=== PATIENT | male | born 1975 | race Caucasian/White ===

== ENCOUNTER 2017-06-30 02:25 | Inpatient (IN) | payer MEDICAID ==
[~2017-06-30] VITALS: Ht 182.9 cm; Wt 123.8 kg
[2017-06-30 02:35] VITALS: BP 144/97
--- NOTE | 2017-06-30 02:41 | NUR ---
TO LOBBY AMBULATORY,IN STABLE CONDITION, MEDICATED PER PROTOCOL, PATIENT TOLERATED WELL, A/W FOR BED, ERMD NOTED.
[2017-06-30] MEDS ORDERED: ACETAMINOPHEN EXTRA STRENGTH 500 MG TAB ONE ×2 (02:52→08:18)
--- NOTE | 2017-06-30 04:25 | NUR ---
Patient to bed 12. RN evaluating patient.
--- NOTE | 2017-06-30 04:35 | NUR ---
41Y M BIB SELF C/O CHEST CONGESTION X 5 DAYS. PT DENIES USE TO MAR[place] OR TOBACCO. PT DENIES ANY ALLERGIES. PT AAOX4. PT SA02 87-90 ON RA, PT PLACED ON NASAL CANULA AT 2L. PT NOW O2SAT IS 96%. PT DENIES ANY N/V/D AT THE MOMENT.
[2017-06-30] MEDS ORDERED: ALBUTEROL 0.083% 2.5 MG/3 ML NEBU INH ONE (05:15)
[2017-06-30] MEDS ORDERED: NACL 0.9% 1,000 ML IV ONE (05:15)
[2017-06-30] MEDS ORDERED: AMPICILLIN/SULBACTAM 3 GM in NACL 0.9% 100 ML IV ONE (05:15)
--- NOTE | 2017-06-30 05:20 | NUR ---
PT PROVIDED URINE CUP, PT STATES HE JUST WENT TO THE BATHROOM, BUT WILL TRY AGAIN IN A LITTLE BIT
[2017-06-30] MEDS ORDERED: AMPICILLIN/SULBACTAM 3 GM VIAL ONE (05:28)
[2017-06-30 06:00] LABS: MEAN CORPUSCULAR VOLUME 86 fL (80-94)
[2017-06-30 06:08] LABS: HEMATOCRIT 45.7 % (36-52); HEMOGLOBIN 15.8 g/dL (12.0-18.0); MEAN CORPUSCULAR HEMOGLOBIN 30 pg (27-31); MEAN CORPUSCULAR HGB CONC 35 g/dL (33-37); PLATELET COUNT (AUTO) 215 K/uL (140-450); RED CELL DISTRIBUTION WIDTH 12.4 % (11.6-13.7); WHITE BLOOD COUNT (AUTO) 16.7 K/uL (4.8-10.8)
[2017-06-30 06:39] LABS: ALBUMIN 3.7 g/dL (3.4-5.0); ANION GAP 16.8 (8-16); CARBON DIOXIDE 23.4 mmol/L (21-32); CREATININE 1.5 mg/dL (0.7-1.3); POTASSIUM 4.2 mmol/L (3.5-5.1); TOTAL BILIRUBIN 0.8 mg/dL (0.0-1.0)
[2017-06-30 06:59] LABS: LYMPHOCYTES % (MANUAL) 6 % (20-46); MONOCYTES % (MANUAL) 12 % (5-12)
[2017-06-30] MEDS ORDERED: INSULIN HUMAN REGULAR 100 UNITS/ML 10 ML VIAL IVP ONE (07:10)
--- NOTE | 2017-06-30 07:18 | NUR ---
Pt report given to SELENE MAYO . Transfer of care at this time. Addendum: 06/30/17 at 0801 by [facility] GOT REPORT FROM MARIA ESTHER EASLEY.
[2017-06-30] MEDS ORDERED: LEVOFLOXACIN 750 MG/D5W PREMIX 150 ML IV ONE (07:40)
[2017-06-30 08:04] LABS: APPEARANCE,URINE CLEAR (CLEAR); BILIRUBIN,URINE NEGATIVE (NEGATIVE); COLOR,URINE YELLOW (YELLOW); LEUKOCYTE ESTERASE ,URINE NEGATIVE (NEGATIVE); NITRITE, URINE NEGATIVE (NEGATIVE); UGLUCOSE 3+ (NEGATIVE)
[2017-06-30 08:05] LABS: BLOOD, URINE TRACE (NEGATIVE)
[2017-06-30] MEDS ORDERED: ACETAMINOPHEN EXTRA STRENGTH 500 MG TAB PO ONE (08:05)
[2017-06-30 08:06] LABS: RBC,URINE 0-5 (RARE) /HPF (0-5); WBC,URINE 0-5 (RARE) /HPF (0-5)
--- NOTE | 2017-06-30 08:14 | NUR ---
PT AAO X 4,C/O BODY SORE 02/10, T 102.8, NABEEL HDEZ; TYLENOL 1000 MG PO. R 26/MIN , ON O2 2 LPM CANULA. BP 123/75.
--- NOTE | 2017-06-30 08:46 | NUR ---
REPEAT BS-312MG/DL, DR LUI INFORMED.
--- NOTE | 2017-06-30 08:48 | NUR ---
Isatu lind in [facility] - 06/30/17 at 0852 by MED1 Patient being reevaluated by physician at bedside.
--- NOTE | 2017-06-30 09:20 | NUR ---
PT STS "FEEL SO MUCH BETTER. T99.9,R22/MINS,O2 SAT 94 %, PT ON O2 2LPM NC.
[2017-06-30] MEDS ORDERED: INSULIN LISPRO SLIDING SCALE 100 UNITS/ML VIAL SUBQ PRN (09:25)
[2017-06-30] MEDS ORDERED: DEXTROSE 50% 50 ML SYR IVP PRN ×2 (09:25→20:50)
[2017-06-30] MEDS: NACL 0.9% 1,000 ML IV SCH ×3 (09:26→23:50)
--- NOTE | 2017-06-30 10:09 | NUR ---
PATIENT HAS BEEN SCREENED AND CATEGORIZED HIGH NUTRITION RISK. PATIENT WILL BE SEEN WITHIN 1-2 DAYS OF ADMISSION. 06/30/17-07/01/[address]
[2017-06-30] MEDS ORDERED: DOCUSATE SODIUM 100 MG GELCAP PO PRN (10:25)
[2017-06-30] MEDS ORDERED: HYDROcodone/APAP 7.5/325 MG 1 TAB PO PRN (10:25)
[2017-06-30] MEDS ORDERED: ONDANSETRON 4 MG/2 ML VIAL IM/IVP PRN (10:25)
[2017-06-30] MEDS ORDERED: MORPHINE SULFATE 2 MG/ML SYR IVP PRN (10:25)
--- NOTE | 2017-06-30 10:41 | NUR ---
LAB AT BEDSIDE
--- NOTE | 2017-06-30 11:03 | NUR ---
ABG DONE WITH NO INCIDENT. RESULTS UPLOADED TO [facility] AND RESULTS GIVEN TO RESIDENT. NO NEW ORDERS OF NOW. WILL CONTINUE TO MONITOR.
[2017-06-30 11:13] LABS: PROTHROMBIN TIME 11.8 secs (10.8-13.4)
[2017-06-30 11:24] LABS: CHOL/HDL RATIO 2.3 (1-4.5); FREE T4 (FREE THYROXINE) 1.12 ng/dL (0.76-1.46); THYROID STIMULATING HORMONE 0.91 uIU/mL (0.34-3.74)
[2017-06-30] MEDS: BLOOD GLUCOSE MONITORING 1 DEV DEV FS SCH ×5 (11:30→23:58)
--- NOTE | 2017-06-30 11:30 | NUR ---
PATIENT ADMITTED FROM ER WITH CC SOB X 4 DAYS. DX: ASP. PNA, SEPSIS. ALERT AND ORIENTED. AMBULATES. ON O2 2L NC. DIMINISHED BREATH SOUNDS. PATIENT HAS IV TO RAC #18, PATENT AND INTACT. DENIES MEDICAL HISTORY. PT MEDICATED FOR INCREASED BS IN ER. ORIENTED PATIENT TO HOSPITAL ENVIRONMENT. CALL LIGHT WITHIN REACH.
--- NOTE | 2017-06-30 11:32 | NUR ---
Patient will be admitted to care of DR GUTIERREZ. Admited to TELE. Will go to [id number]. Belongings list completed. Report to MARIA ESTHER ARREGUIN.
[2017-06-30 12:00] VITALS: BP 120/74
--- NOTE | 2017-06-30 12:20 | NUR ---
PATIENT HAVING INCREASED RESPIRATIONS AFTER AMBULATION. PATIENT UNABLE TO CATCH BREATH O2 SAT 91% ON 2L NC. DR. YBARRA MADE AWARE, NEW ORDERS RECEIVED PRN BIPAP. NEW LABS ORDERED.
[2017-06-30] MEDS: CLINDAMYCIN 600 MG in DEXTROSE 5% 50 ML IV SCH ×3 (12:37→23:56)
[2017-06-30] MEDS: ALBUTEROL SULFATE/IPRATROPIU 3 ML SOL IH SCH ×2 (12:52→18:45)
[2017-06-30] MEDS ORDERED: methylPREDNISolone SS 125 MG in WATER STERILE 2 ML IV ONE (12:55)
[2017-06-30 13:09] VITALS: BP 120/74
--- NOTE | 2017-06-30 13:13 | NUR ---
PT STARTED ON BIPAP. SETTINGS 12/6,10,100%. WILL TITRATE FIO2 TOLERATED. WILL CONTINUE TO MONITOR.
[2017-06-30] MEDS ORDERED: methylPREDNISolone SS 125 MG/2 ML VIAL IVP SCH ×2 (13:30→21:00)
--- NOTE | 2017-06-30 14:20 | NUR ---
PATIENT TOLERATED PO LUNCH. RESTING IN BED ON BIPAP. NO ACUTE DISTRESS NOTED.
--- NOTE | 2017-06-30 14:56 | NUR ---
SECOND ABG DONE WITH NO INCIDENT. DECREASED FIO2 T0 40%. RESULTS GIVEN TO RESIDENT. WILL CONTINUE TO MONITOR.
--- NOTE | 2017-06-30 15:13 | NUR ---
PT OFF BIPAP. PER PT HE FEELS BETTER. DR PEARSON RESIDENT AWARE. WILL CONTINUE TO MONITOR.
[2017-06-30 16:00] VITALS: BP 135/79
--- NOTE | 2017-06-30 16:20 | NUR ---
PATIENT SEEN BY DR. NESS AT BEDSIDE. NEW TRANSFER ORDERS RECEIVED. NEW LABS ORDERED. CONT. BIPAP ORDERED. PATIENT ALERT AND ORIENTED IN BED. CALL LIGHT WITHIN REACH.
[2017-06-30 17:13] LABS: CARBON DIOXIDE 21.8 mmol/L (21-32); CREATININE 1.3 mg/dL (0.7-1.3); POTASSIUM 3.8 mmol/L (3.5-5.1)
[2017-06-30 17:34] LABS: MAGNESIUM 1.3 mg/dL (1.8-2.4); PHOSPHORUS 2.3 mg/dL (2.5-4.9)
--- NOTE | 2017-06-30 18:02 | NUR ---
PT BACK ON BIPAP PER DR NESS REQUEST.
--- NOTE | 2017-06-30 19:00 | NUR ---
RECEIVED REPORT FROM MARIA ESTHER ALFARO. PT IS AWAKE, ALERT & ORIENTED X4, VERBALLY RESPONSIVE. PT IS ON 3L/M OXYGEN VIA NS, O2 SAT 95%. BILATERAL LUNG SOUNDS CLEAR. SINUS TACHY ON CHLORINATION OPERATOR. PERIPHERAL IV LINE ON RIGHT ANTECUBITAL 18G WITH NS 200ML/HR. POSITIVE BOWEL SOUND FROM ALL 4 QUADS. SKIN IS INTACT. ALL SAFETY PRECAUTION IN PLACE CALL LIGHT WITHIN REACH. CONTINUE TO MONITOR.
--- NOTE | 2017-06-30 19:10 | NUR ---
PATIENT TRANSFERRED TO ICU BED 5. PATIENT IS ALERT AND ORIENTED. ON O2 5L NC PER RT.
--- NOTE | 2017-06-30 19:23 | NUR ---
GIVEN REPORT TO MARIA ESTHER WHEELER.
--- NOTE | 2017-06-30 19:40 | NUR ---
RECEIVED REPORT FROM AM SHIFT. PER AM SHIFT PT JUST TRANSFERRED TO ICU ABOUT 1909 FROM TELE. PT IS ALERT ORIENTED X4. PT DENIES ANY PAIN AT THIS TIME. PT ON O2 VIA N/C AT 3 LPM TOLERATING WELL.HOB UP 30-45 DEGREE. TACHYCARDIA ON MONITOR. IV TO RIGHT AC NO 18 INTACT WELL WITH FLUID IV NS AT 200 CC/HR. ABD SOFT NON DISTENDED. POSITIVE BOWEL SOUNDS TO ALL QUADRANT. NO EDEMA NOTED. SKIN IS INTACT. GENTLE CARE GIVEN. CALL LIGHT PLACE IN REACH.
[2017-06-30 20:00] VITALS: BP 146/95
[2017-06-30] MEDS: ACETAMINOPHEN 325 MG TAB PO PRN (20:15)
--- NOTE | 2017-06-30 20:20 | NUR ---
PT HAS FEVER T 100.8. COOLING MEASURE GIVEN. TYLENOL GIVEN ORDER FOR FEVER. PT ALSO C/O PAIN IN CHEST AREA AND GENERAL BODY PAIN LEVEL 02/10. REPOSITION PT FOR COMFORT.HOB UP 45 DEGREE. PRN MORPHINE GIVEN SLOW IVP HAMMAD PAIN.CONTINUE TO MONITOR CLOSELY.
--- NOTE | 2017-06-30 20:45 | NUR ---
GIRL FRIEND COME TO SEE PT. PT LOOK HAPPY.
[2017-06-30] MEDS ORDERED: INSULIN HUMAN REGULAR 100 UNITS in NACL 0.9% 100 ML IV SCH (20:50)
--- NOTE | 2017-06-30 21:00 | NUR ---
BLOOD SUGAR IS 272. DR FRANKLIN MADE AWARE WITH NEW RESULT AND REPORTING TO NO MORE INSULIN ORDER AT THIS TIME. PER MD WILL PUT INSULIN DRIPS ORDER. CONT TO FOLLOW UP. PT NO MORE FEVER T 98.8.
--- NOTE | 2017-06-30 21:50 | NUR ---
BLOOD SUGAR 290 START WITH INSULIN DRIPS ORDER. CONTINUE TO MONITOR CLOSELY
[2017-06-30 22:00] VITALS: BP 119/73
--- NOTE | 2017-06-30 22:00 | NUR ---
T 97.1.
--- NOTE | 2017-06-30 22:50 | NUR ---
BOOD SUGAR DOWN TO 258.INSULIN DRIPS GIVEN ORDER
--- NOTE | 2017-06-30 23:10 | NUR ---
PT URINATE 800 CC LINDA CLEAR COLOR.
[2017-07-01] VITALS (20 sets, daily range): BP systolic 86–153; BP diastolic 50–93
--- NOTE | 2017-07-01 | NUR ---
IV ABT GIVEN TOLERATING WELL
[2017-07-01] MEDS: NACL 0.9% 1,000 ML IV SCH ×4 (00:20→21:02)
--- NOTE | 2017-07-01 00:20 | NUR ---
IV NS STILL RUNNING AT 200 CC/HR BAG NOT CHANGE AT THIS TIME D/T STILL ABOUT 700 CC IN THE BAG.
[2017-07-01 00:37] LABS: ANION GAP 14.2 (8-16); CARBON DIOXIDE 23.9 mmol/L (21-32); CREATININE 1.1 mg/dL (0.7-1.3); POTASSIUM 4.1 mmol/L (3.5-5.1)
[2017-07-01] MEDS: BLOOD GLUCOSE MONITORING 1 DEV DEV FS SCH ×12 (00:58→23:49)
--- NOTE | 2017-07-01 02:00 | NUR ---
PT SLEEPING WELL,NO S/S RESP DISTRESS,NO SOB.
--- NOTE | 2017-07-01 03:00 | NUR ---
PT URINATE 1000 CC. YELLOW CLEAR COLOR. PT CONTINENT USING URINAL.
[2017-07-01 04:18] LABS: HEMATOCRIT 41.5 % (36-52); HEMOGLOBIN 13.9 g/dL (12.0-18.0); MEAN CORPUSCULAR HEMOGLOBIN 29 pg (27-31); MEAN CORPUSCULAR HGB CONC 33 g/dL (33-37); MEAN CORPUSCULAR VOLUME 87 fL (80-94); PLATELET COUNT (AUTO) 207 K/uL (140-450); RED BLOOD CELL COUNT(AUTO) 4.76 MIL/uL (4.20-6.10); RED CELL DISTRIBUTION WIDTH 12.4 % (11.6-13.7); WHITE BLOOD COUNT (AUTO) 12.3 K/uL (4.8-10.8)
[2017-07-01 04:29] LABS: ANION GAP 11.7 (8-16); CARBON DIOXIDE 26.2 mmol/L (21-32); POTASSIUM 3.9 mmol/L (3.5-5.1)
[2017-07-01 04:32] LABS: MAGNESIUM 1.8 mg/dL (1.8-2.4); PHOSPHORUS 2.1 mg/dL (2.5-4.9)
--- NOTE | 2017-07-01 05:00 | NUR ---
PT ABLE TO CLEANSE HIM SELF,STANDBY ASSISTANCE ONLY. DENIES ANY PAIN AT THIS TIME. KEPT PT CLEAN AND DRY. CALL LIGHT IN REACH.
[2017-07-01] MEDS: CLINDAMYCIN 600 MG in DEXTROSE 5% 50 ML IV SCH ×4 (05:25→23:49)
--- NOTE | 2017-07-01 05:30 | NUR ---
AM MEDS GIVEN ONDINA WELL
--- NOTE | 2017-07-01 06:00 | NUR ---
PT URINATE 300 CC YELLOW CLEAR COLOR. CONTINEN USING URINAL.
[2017-07-01 06:16] LABS: T4 (THYROXINE) 7.7 ug/dL (4.5-12.0)
[2017-07-01 06:22] LABS: LYMPHOCYTES % (MANUAL) 15 % (20-46); MONOCYTES % (MANUAL) 9 % (5-12)
[2017-07-01] MEDS: ALBUTEROL SULFATE/IPRATROPIU 3 ML SOL IH SCH ×3 (06:44→18:49)
[2017-07-01] MEDS ORDERED: INSULIN DETEMIR 100 UNITS/ML 10 ML VIAL SUBQ SCH ×2 (07:00→09:00)
--- NOTE | 2017-07-01 07:04 | NUR ---
DR. FRANKLIN MADE AWARE BLOOD SUGAR IS 198, PER MD WILL PUT NEW IVF ORDER AND LEVEMIR ORDER. WILL ENDORESED TO NEXT SHIFT TO FOLLOW UP.
--- NOTE | 2017-07-01 07:13 | NUR ---
REPORT GIVEN TO BONNIE MAYO AM SHIFT. MADE AWARE RT JUST PUT BIPAP ON AFTER THE BREATHING TX.
--- NOTE | 2017-07-01 07:21 | NUR ---
RECIVED PT ON 3LPM NC SPO2 .92 PT AWAKE ALERT BREATH SOUNDS WHEESES BILAT WITH SOME LABORED BREATHING BIPAP PLUGGED INTO RED OUTLET AMBU BAG AT BEDSIDE
--- NOTE | 2017-07-01 07:27 | NUR ---
PT OFF BIPAP FOR BREAKFEAST PLACED ON 2LPM NC
[2017-07-01] MEDS: LEVOFLOXACIN 750 MG/D5W PREMIX 150 ML IV SCH (08:09)
[2017-07-01] MEDS: LACTOBACILLUS RHAMNOSUS GG 1 EACH CAP PO SCH (08:09)
[2017-07-01] MEDS: ACETAMINOPHEN 325 MG TAB PO PRN ×2 (08:10→20:06)
[2017-07-01 08:27] LABS: ANION GAP 14.1 (8-16); CARBON DIOXIDE 22.8 mmol/L (21-32); POTASSIUM 3.9 mmol/L (3.5-5.1)
--- NOTE | 2017-07-01 09:00 | NUR ---
PT PLACED BACK ON BIPAP WITH SETTINGS CHARTED
--- NOTE | 2017-07-01 11:30 | NUR ---
RT PLACED PATIENT BACK ON 02 PER NASAL CANNULA AT 3 LPM
[2017-07-01 12:50] LABS: ANION GAP 10.8 (8-16); CREATININE 0.9 mg/dL (0.7-1.3); POTASSIUM 3.8 mmol/L (3.5-5.1)
[2017-07-01] MEDS ORDERED: PROBIOTIC SCREEN 1 EA MISC MC PRN (13:05)
--- NOTE | 2017-07-01 15:20 | NUR ---
PT REMOVED FROM BIPAP TO VISIT WITH FAMILY PT SPO2 .98 ON 2LPM NC
[2017-07-01] MEDS: ALBUTEROL SULFATE/IPRATROPIU 3 ML SOL IH PRN ×2 (15:54→23:14)
--- NOTE | 2017-07-01 16:14 | NUR ---
PLEASE REFER TO NUTRITION ASSESSMENT UNDER CARE ACTIVITY FOR ESTIMATED NUTRITIONAL NEEDS. 1.RD TO PROVIDE MEDICAL NUTRITION THERAPY REGARDING WT LOSS AND GLUCOSE CONTROL (UNABLE TO COMPLETE TODAY, WILL DEFER TO FOLLOW/UP VISIT) 2.CONTINUE CURRENT DIET (CCHO 60 GM), PT TO INCREASE PO INTAKE TO MEET >90% ESTIMATED ENERGY AND PROTEIN NEEDS. 3.RD TO FOLLOW-UP 2-3 DAYS, HIGH RISK JOSELINE QUINONEZ, RD
[2017-07-01] MEDS: INSULIN LISPRO SLIDING SCALE 100 UNITS/ML VIAL SUBQ PRN ×3 (16:18→23:50)
--- NOTE | 2017-07-01 16:54 | NUR ---
PT PLACED BACK ON BIPAP WITH SETTINGS CHARTED
[2017-07-01] MEDS ORDERED: MAG SULF 2000 MG/WATER PREMIX 50 ML IV SCH (19:00)
[2017-07-01] MEDS ORDERED: SODIUM PHOS / POTASSIUM PHOS 1 PKT PDR PO SCH (19:00)
--- NOTE | 2017-07-01 19:20 | NUR ---
REPORT GIVEN TO NOC RN FOR CONTINUITY OF CARE. PATIENT IN STABLE CONDITION.
--- NOTE | 2017-07-01 19:30 | NUR ---
RECEIVED PT FROM AM SHIFT. PT IS ALERT ORIENTED. ABLE TO MAKE NEEDS KNOWN. PT ON BIPAP WITH FIO2 40 % TOLERATING WELL. LUNGS SOUND CLEAR TO EPISODE OF WHEEZING. NO C/O PAIN AT THIS TIME. HOB UP 30-45 DEGREE. CONT ON IV NS AT 80 CC/HR TO LEFT HAND. IV SITE PERIPHERAL LEFT HAND NO 22 AND RIGHT AC NO 18. BOTH INTACT WELL. NO S/S OF INFECTION NOTED.SKIN IS INTACT. ABD SOFT NON DISTENDED. PT IS CONTINENT BOWEL AND BLADDER. GENTLE CARE GIVEN KEPT CLEAN AND DRY. CALL LIGHT IN REACH.
--- NOTE | 2017-07-01 20:10 | NUR ---
PT HAS FEVER 101.9. COOLING MEASURE GIVEN. INCREASE FLUIDS INTAKE. ICE PACKS TO BOTH ARMPIT. TYLENOL GIVE ORDER PO FOR FEVER. CONTINUE TO MONITOR CLOSELY.
--- NOTE | 2017-07-01 21:00 | NUR ---
PT NO MORE FEVER T.98.8. BLOOD SUGAR WAS 267. INSULIN GIVEN PERSLIDING SCALE AND TOLERATING WELL.
--- NOTE | 2017-07-01 21:02 | NUR ---
IV NS STILL RUNNING AT 80 CC/HR .STILL REMAINING 700 CC ON THE IV BAG.NO NEW BAG NEED TO BE CHANGE YET.
--- NOTE | 2017-07-01 21:10 | NUR ---
FIO2 TITRATED TO 35%, TOLERATING WELL, O2 SAT 95%, NO RESP DISTRESS OR SOB NOTED AT THIS TIME, KEKE MAYO AWARE.
--- NOTE | 2017-07-01 21:15 | NUR ---
FAMILY COME TO VISIT PT LOOK HAPPY.
--- NOTE | 2017-07-01 21:15 | NUR ---
FIO2 CHANGE TO 35%
--- NOTE | 2017-07-01 21:30 | NUR ---
PT WANT TO TAKE BREAK FROM BIPAP PUT ON O2 AT 5LPM ONDINA WELL.
--- NOTE | 2017-07-01 21:31 | NUR ---
PT REQUESTED TO TAKE A BREAK FROM BIPAP, PLACED ON 5LPM NC, TOLERATING WELL O2 SAT 95%, NO RESP DISTRESS OR SOB AT THIS TIME, KEKE MAYO AWARE.
--- NOTE | 2017-07-01 22:30 | NUR ---
PT C/O PAIN ON CHEST AREA 01/10. REPOSITION FOR COMFORT. NORCO GIVEN ORDER. CALL LIGHT IN REACH.
--- NOTE | 2017-07-01 23:18 | NUR ---
PT SLEEPING AT THIS TIME NO S/S OF PAIN. PT BACK TO BIPAP AT 35 % FIO2
--- NOTE | 2017-07-01 23:20 | NUR ---
PT PLACED BACK ON BIPAP TO SLEEP, GIVEN PRN HHN TX, TOLERATED WELL, O2 SAT 98%, KEKE RN AWARE, WILL CONT TO MONITOR.
[2017-07-02] VITALS (16 sets, daily range): BP systolic 110–173; BP diastolic 57–95
--- NOTE | 2017-07-02 00:10 | NUR ---
PT IS CONTINENT USING URINAL AND 1000 CC YELLOW CLEAR URINE NOTED. ABLE TO CLEAN HER SELF
--- NOTE | 2017-07-02 02:00 | NUR ---
PT SLEEPING USING BIPAP TOLERATING WELL,NO S/S OF RESP.DISTRESS.NO SOB.
[2017-07-02] MEDS: BLOOD GLUCOSE MONITORING 1 DEV DEV FS SCH ×5 (03:59→20:06)
[2017-07-02] MEDS: INSULIN LISPRO SLIDING SCALE 100 UNITS/ML VIAL SUBQ PRN ×5 (04:01→20:16)
[2017-07-02] MEDS: ALBUTEROL SULFATE/IPRATROPIU 3 ML SOL IH PRN ×2 (04:10→15:31)
--- NOTE | 2017-07-02 04:10 | NUR ---
BLOOD SUGAR IS 192 INSULIN COVERAGE 2 UNIT GIVEN SQ ORDER. PT URINATE X1 WITH 400 CC. LINDA COLOR ABLE TO CLEAN HIM SELF
[2017-07-02] MEDS: ACETAMINOPHEN 325 MG TAB PO PRN ×3 (05:46→20:14)
[2017-07-02] MEDS: CLINDAMYCIN 600 MG in DEXTROSE 5% 50 ML IV SCH ×3 (05:46→17:10)
--- NOTE | 2017-07-02 05:50 | NUR ---
AM CARE GIVEN, PT HAS X1 LARGE BM . ABLE TO STAND UP AND SIT ON THE COMMODE. ABLE TO CLEAN HIM SELF. KEPT PT CLEAN AND DRY. CALL LIGHT IN REACH. PT HAS T 100.2 COOLING MEASURE GIVEN. TYLENOL GIVEN ORDER. CONT TO MONITOR.
[2017-07-02 06:25] LABS: BASOPHILS # (AUTO) 0.2 K/uL (0.00-0.22); BASOPHILS % (AUTO) 1.3 % (0.0-2.0); EOSINOPHILS % (AUTO) 0.1 % (0.0-4.0); HEMATOCRIT 41.2 % (36-52); HEMOGLOBIN 13.7 g/dL (12.0-18.0); LYMPHOCYTES % (AUTO) 7.9 % (20.5-51.1); MEAN CORPUSCULAR HEMOGLOBIN 29 pg (27-31); MEAN CORPUSCULAR HGB CONC 33 g/dL (33-37); MEAN CORPUSCULAR VOLUME 87 fL (80-94); MONOCYTES # (AUTO) 1.3 K/uL (0.8-1.0); MONOCYTES % (AUTO) 9.5 % (1.7-9.3); NEUTROPHILS # (AUTO) 10.8 K/uL (1.8-7.7); NEUTROPHILS % (AUTO) 81.2 % (42.2-75.2); PLATELET COUNT (AUTO) 273 K/uL (140-450); RED BLOOD CELL COUNT(AUTO) 4.75 MIL/uL (4.20-6.10); RED CELL DISTRIBUTION WIDTH 12.3 % (11.6-13.7)
[2017-07-02 06:35] LABS: ANION GAP 14.1 (8-16); CARBON DIOXIDE 25.5 mmol/L (21-32); POTASSIUM 3.6 mmol/L (3.5-5.1)
[2017-07-02] MEDS: ALBUTEROL SULFATE/IPRATROPIU 3 ML SOL IH SCH ×3 (06:56→19:37)
[2017-07-02 07:01] LABS: WHITE BLOOD COUNT (AUTO) 13.3 K/uL (4.8-10.8)
--- NOTE | 2017-07-02 07:08 | NUR ---
PER RT PT ON O2 VIA N/C AT 3LPM AT THIS TIME AND ONDINA WELL. RECHECK TEMP DOWN TO 97.7. CONT TO MONITOR.
--- NOTE | 2017-07-02 07:50 | NUR ---
RECEIVED PATIENT ON BED.INITIAL ASSESSMENT DONE TO PATIENT.PT ON 3LNC SATURATING AT 95 PERCENT.NO CO PAIN.LEFT HAND 22 GAUGE WITH NS AT 80 ML/H.PT USES THE URINAL AND BSC.ST ON THE MONITOR.WILL MONITOR.
[2017-07-02] MEDS: LEVOFLOXACIN 750 MG/D5W PREMIX 150 ML IV SCH (08:19)
[2017-07-02] MEDS: LACTOBACILLUS RHAMNOSUS GG 1 EACH CAP PO SCH (08:19)
[2017-07-02] MEDS: SODIUM PHOS / POTASSIUM PHOS 1 PKT PDR PO SCH ×3 (08:19→16:34)
[2017-07-02] MEDS: ATORVASTATIN 80 MG TAB PO SCH (08:19)
[2017-07-02] MEDS: ASPIRIN 81 MG TAB.CHEW PO SCH (08:20)
[2017-07-02] MEDS: INSULIN DETEMIR 100 UNITS/ML 10 ML VIAL SUBQ SCH (08:21)
[2017-07-02] MEDS: NACL 0.9% 1,000 ML IV SCH ×2 (08:23→22:11)
[2017-07-02] MEDS ORDERED: INSULIN DETEMIR 100 UNITS/ML 10 ML VIAL SUBQ SCH (09:00)
--- NOTE | 2017-07-02 13:13 | NUR ---
pt with shortness of breath with exertion especially after using the bedside commode.respiratory therapist gave treatment
--- NOTE | 2017-07-02 14:52 | NUR ---
PT REQUEST BE PUT BACK ON BIPAP PT STILL WITH SOME MILD LABORED BREATHING
--- NOTE | 2017-07-02 15:36 | NUR ---
PT REMOVED BIPAP REQUESTED HHN HHN RX GIVEN PT PLACED BACK ON 3LPM NC WILL CONTINUE TO MONITOR PT ON NC
--- NOTE | 2017-07-02 18:51 | NUR ---
PT NO CO PAIN.PT STILL USING ACCESSORY MUSCLES FOR BREATHING .TACHYPNEIC AND SHORTNESS OF BREATH UPON EXERTION.PT ON 3LNC.PT TOLERATED DINNER .ST ON THE MONITOR.
--- NOTE | 2017-07-02 19:17 | NUR ---
report given to ace roldan for continuity of care
--- NOTE | 2017-07-02 19:20 | NUR ---
RECEIVED REPORT FORM AM NURSE AT BEDSIDE, PT IS AAOX4, ABLE TO FOLLOW COMMANDS AND MAKE NEEDS KNOWN. HAD FEVER 101.4, WILL MEDICATED, DENIES PAIN. SOB, RT AT BEDSIDE WITH BREATHING TREATMENT, DIMINISHED LUNG SOUNDS, ON O2 AT 3L VIA NC, DENIES CHEST PAIN, ST ON DROP FORGE OPERATOR, LARGE SOFT ABDOMEN WITH ACTIVE BOWEL SOUNDS, ABLE TO VOID WITH URINAL, ABLE TO MOVE ALL EXTREMITIES, SOB WHEN PERFORM ACTIVITY. PERIPHERAL LINE TO LEFT HAND 22GA, RUNNING NS AT 80ML/HR, SKIN IN INTACT, WARM AND DRY TO TOUCH. HOB ELEVATED 30 DEGREES, SAFETY MEASURE IN PLACE, WILL CONTINUE TO MONITOR.
--- NOTE | 2017-07-02 20:00 | NUR ---
ACCU CHECK PROVIDED WITH RESULT OF 274MG/DL, 6 UNITS OF INSULIN GIVEN ORDERED. ALL OTHER SCHEDULED MEDICATION GIVEN, PT TOLERATED WELL.
--- NOTE | 2017-07-02 22:00 | NUR ---
PT IS RESTING IN BED, NO S/S OF DISTRESS, VSS. NO FEVER AT THIS TIME.
[2017-07-03] VITALS (11 sets, daily range): BP systolic 122–143; BP diastolic 61–101
--- NOTE | 2017-07-03 | NUR ---
ACCU CHECK WITH RESULT OF 219MG/DL, 4 UNITS OF INSULIN GIVEN ORDERED. RT AT BEDSIDE, PUT BIPAP ON, O2 SAT AT 96%
[2017-07-03] MEDS: CLINDAMYCIN 600 MG in DEXTROSE 5% 50 ML IV SCH ×4 (00:23→17:58)
[2017-07-03] MEDS: BLOOD GLUCOSE MONITORING 1 DEV DEV FS SCH ×6 (00:23→20:00)
[2017-07-03] MEDS: INSULIN LISPRO SLIDING SCALE 100 UNITS/ML VIAL SUBQ PRN ×6 (00:24→21:18)
[2017-07-03] MEDS: ALBUTEROL SULFATE/IPRATROPIU 3 ML SOL IH PRN ×2 (00:25→21:05)
--- NOTE | 2017-07-03 01:07 | NUR ---
PATIENTS REQUESTED TO GO BACK ON BIPAP ON ORDERED SETTINGS. BREATH SOUNDS WERE CLEAR/DIMISHED. HEART RATE WAS 88 AND 02 SATURATIONS WAS 95%. NO DISTRESS NOTED
--- NOTE | 2017-07-03 02:00 | NUR ---
NO CHANGE OF CONDITION AT THIS TIME, VSS.
--- NOTE | 2017-07-03 04:00 | NUR ---
ACCU CHECK PERFORMED WITH RESULT OF 159MG/DL, 2 UNITS OF INSULIN GIVEN. AM CARE AND ORAL CARE PROVIDED, PT HAD A MODERATED SOFT STOOL AT THIS TIME.
[2017-07-03] MEDS ORDERED: guaiFENesin/CODEINE 100/10MG 5 ML UDC PO PRN (05:10)
--- NOTE | 2017-07-03 06:00 | NUR ---
PT IS RESTING IN BED, NO S/S OF DISTRESS, VSS. F/C CARE PROVIDED.
[2017-07-03] MEDS: ALBUTEROL SULFATE/IPRATROPIU 3 ML SOL IH SCH ×3 (06:54→19:00)
--- NOTE | 2017-07-03 07:00 | NUR ---
RCV'D PT ON 4 L NC. PT HAS INCREASED WOB. PLACED PT ON BIPAP. HHN TX OF [place] GIVEN INLINE WITH BIPAP. WILL CONTINUE TO MONITOR
--- NOTE | 2017-07-03 07:06 | NUR ---
RECEIVED REPORT FROM INSTRUMENT LENS GRINDER APPRENTICE RN. PT IS AWAKE, ALERT AND ORIENTED X 4. ABLE TO MAKE NEEDS KNOWN. AFEBRILE, DENIES PAIN OR DISCOMFORT. SINUS RHYTHM ON MONITOR. LUNGS SOUND CLEAR ON BILATERAL UPPER LOBES, DIMINISHED LOWER LOBES. ON O2 3LPM/NC. NO SOB. ABDOMEN SOFT, NONTENDER, NON DISTENDED, WITH ACTIVE BOWEL SOUNDS. PERIPHERAL IV TO LEFT HAND G22 PATENT AND INTACT, INFUSING ORDERED IV FLUID. SKIN WARM TO TOUCH AND DRY. ABLE TO MOVE ALL EXTREMITIES. ABLE TO VOID WITH URINAL. HOB 30 DEGREES, BED IN LOW POSITION AND CALL LIGHT WITHIN REACH. WILL CONTINUE TO MONITOR.
--- NOTE | 2017-07-03 07:06 | NUR ---
REPORT GIVEN TO MARIA ESTHER ALLEN AT BEDSIDE FOR CONTINUE OF CARE, PT IS IN STABLE CONDITION AT THIS TIME.
[2017-07-03 07:07] LABS: BASOPHILS # (AUTO) 0.1 K/uL (0.00-0.22); BASOPHILS % (AUTO) 0.8 % (0.0-2.0); EOSINOPHILS % (AUTO) 0.3 % (0.0-4.0); HEMATOCRIT 38.5 % (36-52); HEMOGLOBIN 13.3 g/dL (12.0-18.0); LYMPHOCYTES # (AUTO) 1.9 K/uL (2.0-11.5); LYMPHOCYTES % (AUTO) 15.2 % (20.5-51.1); MEAN CORPUSCULAR HEMOGLOBIN 30 pg (27-31); MEAN CORPUSCULAR HGB CONC 34 g/dL (33-37); MEAN CORPUSCULAR VOLUME 87 fL (80-94); MONOCYTES # (AUTO) 1.5 K/uL (0.8-1.0); MONOCYTES % (AUTO) 12.3 % (1.7-9.3); NEUTROPHILS # (AUTO) 8.9 K/uL (1.8-7.7); NEUTROPHILS % (AUTO) 71.4 % (42.2-75.2); PLATELET COUNT (AUTO) 293 K/uL (140-450); RED BLOOD CELL COUNT(AUTO) 4.44 MIL/uL (4.20-6.10); RED CELL DISTRIBUTION WIDTH 12.2 % (11.6-13.7)
[2017-07-03 07:22] LABS: ANION GAP 12.7 (8-16); CARBON DIOXIDE 26.8 mmol/L (21-32); CREATININE 0.8 mg/dL (0.7-1.3); POTASSIUM 3.5 mmol/L (3.5-5.1)
[2017-07-03 07:26] LABS: PHOSPHORUS 3.7 mg/dL (2.5-4.9)
[2017-07-03 07:33] LABS: WHITE BLOOD COUNT (AUTO) 12.4 K/uL (4.8-10.8)
--- NOTE | 2017-07-03 08:03 | NUR ---
PT OFF BIPAP TO EAT.
--- NOTE | 2017-07-03 09:05 | NUR ---
DR. ALFARO IN TO SEE AND EXAMINE PT. WILL FOLLOW UP WITH NEW ORDERS.
--- NOTE | 2017-07-03 09:21 | NUR ---
PT BACK ON BIPAP
[2017-07-03] MEDS: ATORVASTATIN 80 MG TAB PO SCH (09:25)
[2017-07-03] MEDS: methylPREDNISolone SS 125 MG/2 ML VIAL IVP SCH ×2 (09:25→20:56)
[2017-07-03] MEDS: LACTOBACILLUS RHAMNOSUS GG 1 EACH CAP PO SCH (09:25)
[2017-07-03] MEDS: ASPIRIN 81 MG TAB.CHEW PO SCH (09:25)
[2017-07-03] MEDS: LEVOFLOXACIN 750 MG/D5W PREMIX 150 ML IV SCH (09:25)
--- NOTE | 2017-07-03 09:27 | NUR ---
MEDICATIONS ADMINISTERED. PT TOLERATED WELL.
[2017-07-03] MEDS: INSULIN DETEMIR 100 UNITS/ML 10 ML VIAL SUBQ SCH (09:30)
--- NOTE | 2017-07-03 10:24 | NUR ---
07/03/17 RD FOLLOW UP COMPLETED PLEASE REFER TO NUTRITION PROGRESS NOTE UNDER CARE ACTIVITY FOR ESTIMATED NUTRITION NEEDS. RD RECOMMENDATIONS: 1. CONTINUE ON CCHO 60 GM DIET. 2. RDN TO PROVIDE DIET HEALTH SHAKES WITH MEALS TO BETTER MEET ESTIMATED NEEDS TOWARDS GOAL OF MEETING > 90% ESTIMATED NEEDS. 3. CONSULT RDN PRN. 4. RDN WILL F/U 5-7 DAYS; LOW RISK. 5. RDN PROVIDED DIABETIC DIET EDUCATION TO PATIENT; PT AND FAMILY ACCEPTED DIABETIC DIET EDUCATION. ESTRELLITA LÓPEZ, , RDN
[2017-07-03] MEDS: NACL 0.9% 1,000 ML IV SCH ×2 (10:32→14:11)
--- NOTE | 2017-07-03 11:42 | NUR ---
PT OFF BIPAP PER RN.
--- NOTE | 2017-07-03 12:05 | NUR ---
NO CHANGE OF CONDITION AT THIS TIME. VITAL SIGNS STABLE. ABLE TO MAKE NEEDS KNOWN. NEEDS WELL ATTENDED. SAFETY MEASURES IN PLACE.
--- NOTE | 2017-07-03 14:54 | NUR ---
RESTING COMFORTABLY AT THIS TIME. NO SOB OR ACUTE DISTRESS NOTED. SAFETY MEASURES ENSURED. WILL CONTINUE TO MONITOR.
--- NOTE | 2017-07-03 15:55 | NUR ---
PT IS ON ROOM AIR. O2 SAT 94%. VITAL SIGNS STABLE. WILL CONTINUE TO MONITOR.
--- NOTE | 2017-07-03 17:20 | NUR ---
REPORT GIVEN TO MARIA ESTHER DUTTON AT TELEMETRY. VITAL SIGNS STABLE. PT IS ON ROOM AIR. NO SOB OR ACUTE DISTRESS. WILL CONTINUE TO MONITOR.
--- NOTE | 2017-07-03 17:40 | NUR ---
RECEIVED PT ON UNIT, PT IS A/OX4, AMBULATORY, PT IS HAS IV ON THIS LEFT HAND, PATENT, INTACT, FLUSHING WELL, SKIN IS INTACT, NO S/S OF RESPIRATORY DISTRESS OR DISCOMFORT NOTED, DISCUSSED PLAN OF CARE WITH PT, PT VERBALIZED UNDERSTANDING, CALL LIGHT IS WITHIN REACH, WILL CONTINUE TO MONITOR.
--- NOTE | 2017-07-03 19:15 | NUR ---
ENDORSED PT TO INCOMING INSPECTOR NURSE FOR CONTINUITY OF CARE. PT STABLE AT THIS TIME.
--- NOTE | 2017-07-03 19:16 | NUR ---
RECEIVED REPORT FROM AM NURSE. PT IS AWAKE, SITTING UP IN BED. NO SIGNS OF ACUTE DISTRESS NOTED, RESPIRATIONS EVEN AND UNLABORED. PLAN OF CARE DISCUSSED, PT VERBALIZED UNDERSTANDING. BIPAP MACHINE AT BEDSIDE. BED IN LOW POSITION, BILATERAL HALF SIDE RAIL UP, CALL LIGHT WITHIN REACH, WILL CONTINUE TO MONITOR.
--- NOTE | 2017-07-03 19:50 | NUR ---
BEFORE PT WAS TRANSFER TO MED SURG, I ASK HIM TO GAVE HIM A NEB HHN TX, AND PT HE TOLD ME THAT HE DOES NOT WANTED, HIS FEELING GOOD, AND NC THE SAME.
--- NOTE | 2017-07-03 21:00 | NUR ---
NEW IV ACCESS STARTED ON LEFT HAND 22G. PREVIOUS IV ACCESS CAME OUT. PT TOLERATED WELL, WILL CONTINUE TO MONITOR.
--- NOTE | 2017-07-03 21:05 | NUR ---
I WAS NOT GIVEN REPORT THAT PATIENT WAS TRANSFERRED FROM ICU AROUND 1800, SO HHN WAS NOT GIVEN AT THAT TIME. CALL BY MARIA ESTHER BARNEY AND HHN MEDICATION WAS GIVEN AND NO SIGNS OF RESP DISTRESS NOTED
--- NOTE | 2017-07-03 22:45 | NUR ---
ARRIVED AT PATIENT BEDSIDE AND BIPAP UNIT IS STBY. NO SIGNS OF RESPIRATORY DISTRESS NOTED RR 18 SAO2 97% HR 83
[2017-07-04] VITALS: BP 146/72
[2017-07-04] MEDS: CLINDAMYCIN 600 MG in DEXTROSE 5% 50 ML IV SCH ×3 (00:51→12:57)
[2017-07-04] MEDS: BLOOD GLUCOSE MONITORING 1 DEV DEV FS SCH ×5 (00:54→16:00)
[2017-07-04] MEDS: INSULIN LISPRO SLIDING SCALE 100 UNITS/ML VIAL SUBQ PRN ×5 (01:01→17:30)
[2017-07-04 04:00] VITALS: BP 137/92
[2017-07-04 07:27] LABS: HEMATOCRIT 40.4 % (36-52); MEAN CORPUSCULAR HEMOGLOBIN 30 pg (27-31); MEAN CORPUSCULAR HGB CONC 35 g/dL (33-37); MEAN CORPUSCULAR VOLUME 87 fL (80-94); PLATELET COUNT (AUTO) 399 K/uL (140-450); RED BLOOD CELL COUNT(AUTO) 4.62 MIL/uL (4.20-6.10); RED CELL DISTRIBUTION WIDTH 12.2 % (11.6-13.7); WHITE BLOOD COUNT (AUTO) 16.4 K/uL (4.8-10.8)
[2017-07-04] MEDS: ALBUTEROL SULFATE/IPRATROPIU 3 ML SOL IH SCH ×2 (07:30→14:21)
--- NOTE | 2017-07-04 07:30 | NUR ---
ENDORSED PT TO AM NURSE FOR CONTINUITY OF CARE. PT IN STABLE CONDITION.
[2017-07-04 07:48] LABS: ANION GAP 14.2 (8-16); CARBON DIOXIDE 23.7 mmol/L (21-32); CREATININE 0.8 mg/dL (0.7-1.3); POTASSIUM 3.9 mmol/L (3.5-5.1)
[2017-07-04 07:53] LABS: MAGNESIUM 2.2 mg/dL (1.8-2.4); PHOSPHORUS 4.2 mg/dL (2.5-4.9)
[2017-07-04 08:00] VITALS: BP 144/90
--- NOTE | 2017-07-04 08:00 | NUR ---
PT IN BED AWAKE ALERT AND ORIENTED X4. PT IS RESPONSIVE TO VERBAL COMMAND. PT DENIED ANY PAIN, NO RESP DISTRESS NOTED. ABLE TO MOVE ALL EXT WELL IN BED. IVF INFUSING ORDERED. V/S STABLE.
[2017-07-04 08:26] LABS: LYMPHOCYTES % (MANUAL) 17 % (20-46); MONOCYTES % (MANUAL) 8 % (5-12)
[2017-07-04] MEDS: INSULIN DETEMIR 100 UNITS/ML 10 ML VIAL SUBQ SCH (08:35)
[2017-07-04] MEDS: methylPREDNISolone SS 125 MG/2 ML VIAL IVP SCH (08:38)
[2017-07-04] MEDS: ASPIRIN 81 MG TAB.CHEW PO SCH (08:41)
[2017-07-04] MEDS: ATORVASTATIN 80 MG TAB PO SCH (08:42)
--- NOTE | 2017-07-04 09:00 | NUR ---
PT SITTING AT THE EDGE OF THE BED. 2 UNITS OF HUMALOG GIVEN FOR BLOOD SUGAR OF 198. NO ACUTE DISTRESS NOTED. NORMAL SINUS RHYTHM ON THE MONITOR.
[2017-07-04] MEDS: LACTOBACILLUS RHAMNOSUS GG 1 EACH CAP PO SCH (10:07)
[2017-07-04] MEDS: LEVOFLOXACIN 750 MG/D5W PREMIX 150 ML IV SCH (10:08)
[2017-07-04 12:36] VITALS: BP 145/91
--- NOTE | 2017-07-04 13:13 | NUR ---
PT SITTING IN BED CALMLY. NO PAIN, SOB OR DISTRESS NOTED. 6 UNITS OF INSULIN COVERAGE GIVEN FOR BLOOD SUGAR OF 283. WILL NOTIFY MD ABOUT BP OF 145/91.
[2017-07-04] MEDS ORDERED: LEVO750T2 PO (13:48)
[2017-07-04] MEDS ORDERED: LIP80 PO (13:48)
[2017-07-04] MEDS ORDERED: GLU500 PO (14:04)
[2017-07-04] MEDS ORDERED: CLIN300C2 PO (14:33)
[2017-07-04] MEDS ORDERED: PRED50TA3 PO (14:36)
--- NOTE | 2017-07-04 14:46 | NUR ---
PT AWAKE ALERT AND CALM. BP RECHECKED WITH RESULT OF 148/91. RESIDENT NOTIFIED. ORDERS TO DECREASED IVF TO TKO OBTAINED AND IV REDUCED. PT STATES THAT HE WAS INFORMED THAT HE WILL BE GOING HOME TODAY. NO DISCHARGE ORDERS ENTERED IN THE SYSTEM YET
[2017-07-04] MEDS ORDERED: PNEUMOCOCCAL VACCINE 23 MCG/0.5 ML VIAL IMVAC SCH (17:00)
[2017-07-04] MEDS ORDERED: INFLUENZA VIRUS VACCINE QUAD 0.5 ML SYR IMVAC SCH (17:00)
--- NOTE | 2017-07-04 18:20 | NUR ---
DISCHARGE EDUCATION ON MEDICATION, DIABETIC DIET, DOING ACCU CHECK PRIOR TO EACH MEAL AND FOLLOWING INSULIN COVERAGE PRESCRIBED. PT STATES THAT HE ALREADY HAS INSULIN AT HOME. S/S OF INFECTION AND WHEN TO RETURN TO ED PROVIDED TO PT. FLU AND PNEUMONIA VACCIN GIVEN TO PT. IV REMOVED, PT DC HOME.
== END 2017-07-04 18:05 | disposition home or self-care (01) | DRG 720 ==
LOC: MED 02:25 → MTU 07:54 → MIC 19:10 → MTU 07-03 17:23
PROVIDERS: ADMIT Family Medicine Sports Medicine; ATTEND Family Medicine Sports Medicine
PROC: 5A09357 Assistance with Respiratory Ventilation, Less than 24 Consecutive Hours, Continuous Positive Airway Pressure (ICD-10-PCS; principal; 2017-07-01)
PROC: 5A09357 Assistance with Respiratory Ventilation, Less than 24 Consecutive Hours, Continuous Positive Airway Pressure (ICD-10-PCS; 2017-07-03)
PROC: 3E0234Z Introduction of Serum, Toxoid and Vaccine into Muscle, Percutaneous Approach (ICD-10-PCS; 2017-07-04)
PROC: 3E0234Z Introduction of Serum, Toxoid and Vaccine into Muscle, Percutaneous Approach (ICD-10-PCS; 2017-07-04)
DX: A41.9 Sepsis, unspecified organism (principal); N17.0 Acute kidney failure with tubular necrosis; J96.01 Acute respiratory failure with hypoxia; J69.0 Pneumonitis due to inhalation of food and vomit; R65.21 Severe sepsis with septic shock; D68.59 Other primary thrombophilia; E11.51 Type 2 diabetes mellitus with diabetic peripheral angiopathy without gangrene; E11.10 Type 2 diabetes mellitus with ketoacidosis without coma; E11.65 Type 2 diabetes mellitus with hyperglycemia; E87.8 Other disorders of electrolyte and fluid balance, not elsewhere classified; E87.1 Hypo-osmolality and hyponatremia; E66.01 Morbid (severe) obesity due to excess calories; E83.39 Other disorders of phosphorus metabolism; E83.42 Hypomagnesemia; I73.9 Peripheral vascular disease, unspecified; Z68.41 Body mass index [BMI] 40.0-44.9, adult; Z79.4 Long term (current) use of insulin; Z23 Encounter for immunization
CPT/HCPCS: 36415; 36600; 71010; 71250; 80048; 80053; 81001; 82150; 82803; 82948; 83036; 83605; 83690; 83735; 83880; 84100; 84436; 84439; 84443; 84479; 84484; 85025; 85610; 85730; 87040; 87070; 87081; 87186; 87205; 87804; 90658; 90732; 93925; 93970; 94640; 94660; 96361; 96365; 96367; 96375; 99291; G0482; J0295; J1644; J1815; J1956; J2270; J2930; J3490; J7030; J7060; J7613; J7620; Q0092

== ENCOUNTER 2017-07-30 06:49 | Emergency (ER) | payer MEDICAID ==
[~2017-07-30] VITALS: Ht 182.9 cm; Wt 127.0 kg
[~2017-07-30 06:49] MED LIST: CLIN300C2 PO; GLU500 PO; LEVO750T2 PO; LIP80 PO; PRED50TA3 PO
[2017-07-30 06:53] VITALS: BP 142/85
--- NOTE | 2017-07-30 07:00 | NUR ---
TO LOBBY,A/W MILAGRO MAGANA NOTED
--- NOTE | 2017-07-30 07:33 | NUR ---
Pt c/o SOB and nighttime coughing x 5 days. Use inhaler at home without relief. He was also dx with PNU in early july. VSS, O2 95% on room air. NAD Addendum: 07/30/17 at 0850 by [email or web address] Respiratory Therapist at bedside for respiratory intervention. Patient tolerated well
[2017-07-30] MEDS ORDERED: ALBUTEROL SULFATE/IPRATROPIU 3 ML SOL IH ONE ×2 (07:45→08:35)
[2017-07-30] MEDS ORDERED: methylPREDNISolone SS 125 MG/2 ML VIAL IM ONE (07:45)
[2017-07-30 08:59] VITALS: BP 150/93
--- NOTE | 2017-07-30 08:59 | NUR ---
Patient discharged with v/s stable. Written and verbal after care instructions given and explained. Patient alert, oriented and verbalized understanding of instructions. Ambulatory with steady gait. All questions addressed prior to discharge. ID band removed. Patient advised to follow up with PMD. Rx of prednisone and albuterol inhaler given. Patient educated on indication of medication including possible reaction and side effects. Opportunity to ask questions provided and answered.
--- NOTE | 2017-07-30 09:01 | NUR ---
Pt was not in distress, no labor breathing, no retraction, no use of accessory muscles. Wheezing was heard on bilateral upper lobes. O2 95%
== END 2017-07-30 08:59 | disposition home or self-care (01) ==
LOC: MED 06:49
DX: J40 Bronchitis, not specified as acute or chronic (principal); R06.2 Wheezing; R06.00 Dyspnea, unspecified; I10 Essential (primary) hypertension; Z79.899 Other long term (current) drug therapy; Z79.84 Long term (current) use of oral hypoglycemic drugs
CPT/HCPCS: 71045; 94640; 96372; 99284; J2930; J7620

== ENCOUNTER 2022-11-03 14:02 | Emergency (ER) | payer SELFPAY ==
[~2022-11-03] VITALS: Ht 182.9 cm; Wt 115.7 kg
[2022-11-03 14:06] VITALS: BP 150/99
--- NOTE | 2022-11-03 14:13 | NUR ---
46 YO MALE BIBS. PRESENTS TO THE ED FOR SHORTNESS OF BREATH UPON EXERTION, STATES IT CAN BE ANY SMALL TASK AND HE BECOMES SOB. 6 WEEKS AGO WITH COUGH. PMH: HYPERTHYROID, DENIES ANY ALLERGIES AND PAIN.
--- NOTE | 2022-11-03 14:53 | NUR ---
XR AT BEDSIDE
[2022-11-03] MEDS ORDERED: ALBUTEROL SULFATE/IPRATROPIU 3 ML SOL IH ONE (15:05)
[2022-11-03] MEDS ORDERED: IBUP-2213 PO (15:28)
[2022-11-03] MEDS ORDERED: ALBU0.0912 IH (15:28)
[2022-11-03] MEDS ORDERED: PRED20TA5 PO (15:28)
== END 2022-11-03 16:00 | disposition home or self-care (01) ==
LOC: MED 14:02
DX: R05.9 Cough, unspecified (principal); R06.02 Shortness of breath; R06.2 Wheezing; Z20.822 Contact with and (suspected) exposure to COVID-19; I10 Essential (primary) hypertension; Z79.899 Other long term (current) drug therapy; Z79.1 Long term (current) use of non-steroidal anti-inflammatories (NSAID); Z79.2 Long term (current) use of antibiotics
CPT/HCPCS: 71045; 87426; 87804; 94640; 99284; Q0092